=== PATIENT | male | born 1945 | race Caucasian/White ===

== ENCOUNTER 2020-06-28 10:12 | Emergency (ER) | payer MEDICARE ==
[2020-06-28] MEDS ORDERED: MECLIZINE HCL 25 MG TABLET ONE (10:43)
== END 2020-06-28 12:18 | disposition home or self-care (01) ==
LOC: EDH 10:12
DX: H81.10 Benign paroxysmal vertigo, unspecified ear (principal); I10 Essential (primary) hypertension; Z87.891 Personal history of nicotine dependence; Z88.8 Allergy status to other drugs, medicaments and biological substances
CPT/HCPCS: 93005